=== PATIENT | female | born 1945 | race Caucasian/White ===

== ENCOUNTER → 2018-10-20 09:47 | Outpatient (CLI) | payer MEDICARE, OTHER | END | disposition home or self-care (01) | LOC: D.US 09:47 | DX: R92.8 Other abnormal and inconclusive findings on diagnostic imaging of breast (principal); N63.14 Unspecified lump in the right breast, lower inner quadrant; N60.01 Solitary cyst of right breast ==

== ENCOUNTER 2019-02-24 08:00 | Outpatient (CLI) | payer MEDICARE, OTHER | END 2019-02-24 23:59 | disposition home or self-care (01) | LOC: D.MAMMO 08:00 | PROVIDERS: ATTEND Family Medicine | DX: R92.8 Other abnormal and inconclusive findings on diagnostic imaging of breast (principal); N63.14 Unspecified lump in the right breast, lower inner quadrant ==